=== PATIENT | female | born 1990 | race Caucasian/White ===

== ENCOUNTER 2017-10-10 09:42 | Emergency (ER) | payer MEDICAID ==
[~2017-10-10] VITALS: Ht 154.9 cm; Wt 75.0 kg
[~2017-10-10 09:42] MED LIST: DOXY100T18 PO; IBUP-232 PO; OXYC1TAB63 PO; SENN1TAB PO
[2017-10-10] MEDS ORDERED: IOHEXOL 350 MG/ML 10 ML VIAL (for RAD DIAG) IVCONTRAST ONE (09:43)
[2017-10-10 09:45] VITALS: BP 133/82; PULSE 126; RESP 20; TEMP 100.8; O2SAT 99
[2017-10-10] MEDS ORDERED: BUPR8SUB SL (10:10)
[2017-10-10] MEDS ORDERED: DEXAMETHASONE SOD PHOS 20 MG/5 ML VIAL IV PUSH ONE (10:15)
--- NOTE | 2017-10-10 10:25 | PD ---
HPI . Sore throat Chief Complaint: ENT Complaint Time Seen by Provider: 09:57 Travel History International Travel<30 days: No Contact w/Intl Traveler<30days: No Traveled to known affect area: No History of Present Illness HPI Patient presents with a chief complaint of sore throat. Onset was yesterday. No fever. No other cold symptoms. No known exposures. She rates her pain 10/ 10. No modifying factors. PFSH Past Medical History Hx Anticoagulant Therapy: No Cardiovascular Problems: No Chemotherapy: No Cerebrovascular Accident: No Diabetes: No Diminished Hearing: No Psychiatric: Yes (ACT 09/14) Respiratory: No Tetanus Vaccination: Unknown Influenza Vaccination: No ?: Not : 1 Para: 1 Miscarriage: 0 : 0 Past Surgical History Appendectomy: Yes Section: Yes Hysterectomy: No Social History Alcohol Use: No Tobacco Use: Yes (05/12 ppd) Substance Use: Yes (h/o NARCOTICS denied today) Allergies-Medications (Allergen,Severity, Reaction): Coded Allergies: Sulfa (Sulfonamide Antibiotics) (Unverified Allergy, Mild, HIVES, 10/10/17) penicillin G (Unverified Allergy, Mild, HIVES, 10/10/17) *MDRO Multi-Drug Resistant Organism (Verified Adverse Reaction, Unknown, ) MRSA arm wound 12/2014. MRSA PCR Screen #1 NEGATIVE - 04/25/16 Reported Meds & Prescriptions Reported Meds & Active Scripts Active Reported Buprenorphine (Buprenorphine HCl) 8 Mg Subl 8 Mg SL BID Review of Systems Except as stated in HPI: all other systems reviewed are Neg General / Constitutional: No: Fever, Chills HENT: Positive: Sore Throat, No: Rhinorrhea, Congestion Respiratory: No: Cough Hematologic/Lymphatic: Positive: Lymph Node Enlargement Physical Exam Narrative GENERAL: Awake and alert. SKIN: warm/dry. Normal color and turgor. HEAD: Normocephalic. Atraumatic. EYES: Pupils equal and round. No scleral icterus. No injection or drainage. ENT: Edema and erythema of the oropharynx with exudates in the tonsillar crypts. NECK: Trachea midline. Full range of motion without pain. Significant cervical lymphadenopathy. CARDIOVASCULAR: Regular rate and rhythm. RESPIRATORY: No accessory muscle use. MUSCULOSKELETAL: No obvious deformities. Normal muscle tone. NEUROLOGICAL: Awake and alert. No obvious cranial nerve deficits. Motor grossly within normal limits. Normal speech. PSYCHIATRIC: Appropriate mood and affect; insight and judgment normal. Data Data Last Documented VS Vital Signs Date Time Temp Pulse Resp B/P (MAP) Pulse Ox O2 Delivery O2 Flow Rate FiO2 10/10/17 09:45 100.8 126 20 133/82 (99) 99 Orders Orders Group A Rapid Strep Screen (10/10/17 10:04) Monoscreen (10/10/17 10:04) Complete Blood Count With Diff (10/10/17 10:04) Basic Metabolic Panel (Bmp) (10/10/17 10:04) ^ Saline Lock (10/10/17 10:04) Dexamethasone Inj (Decadron Inj) (10/10/17 10:15) Ct Soft Tiss Neck W Iv Cont (10/10/17 10:04) Cefazolin Inj (Ancef Inj) (10/10/17 12:00) Iohexol 350 Inj (Omnipaque 350 Inj) (10/10/17 09:43) Labs Laboratory Tests Test 10/10/17 10:20 White Blood Count 15.2 TH/MM3 Red Blood Count 4.51 MIL/MM3 Hemoglobin 13.6 GM/DL Hematocrit 40.3 % Mean Corpuscular Volume 89.5 FL Mean Corpuscular Hemoglobin 30.3 PG Mean Corpuscular Hemoglobin Concent 33.8 % Red Cell Distribution Width 12.4 % Platelet Count 163 TH/MM3 Mean Platelet Volume 9.8 FL Neutrophils (%) (Auto) 84.0 % Lymphocytes (%) (Auto) 6.3 % Monocytes (%) (Auto) 8.8 % Eosinophils (%) (Auto) 0.5 % Basophils (%) (Auto) 0.4 % Neutrophils # (Auto) 12.7 TH/MM3 Lymphocytes # (Auto) 1.0 TH/MM3 Monocytes # (Auto) 1.3 TH/MM3 Eosinophils # (Auto) 0.1 TH/MM3 Basophils # (Auto) 0.1 TH/MM3 CBC Comment DIFF FINAL Differential Comment Blood Urea Nitrogen 10 MG/DL Creatinine 0.80 MG/DL Random Glucose 118 MG/DL Calcium Level 8.7 MG/DL Sodium Level 138 MEQ/L Potassium Level 4.5 MEQ/L Chloride Level 100 MEQ/L Carbon Dioxide Level 28.0 MEQ/L Anion Gap 10 MEQ/L Estimat Glomerular Filtration Rate 85 ML/MIN Monoscreen NEG MDM Medical Decision Making Medical Screen Exam Complete: Yes Emergency Medical Condition: Yes Differential Diagnosis Differential diagnosis of sore throat includes but is not limited to viral illness, strep throat, mononucleosis, retropharyngeal abscess, peritonsillar abscess Narrative Course Patient presents with a chief complaint of a sore throat. She has edema of the oropharynx as well as significant cervical lymphadenopathy. Rapid strep and Monospot are pending. I have also ordered a CT of the soft tissues of her neck for further evaluation of lymphadenopathy. In the meantime, she will be treated with Decadron. This patient is on chronic pain management. CBC & BMP Diagram 10/10/17 10:20 Calcium Level 8.7 strep +. Curry -. Last Impressions Neck CT 10/10/17 1004 Signed Impressions: CONCLUSION: 1. Marked diffuse swelling of the adenoids and uvula, presumably infectious. N o drainable abscess demonstrated. 2. Bilateral cervical lymphadenopathy, presumably reactive. Given Ancef here. She will be discharged on Keflex. Diagnosis Primary Impression: Strep throat Patient Instructions: General Instructions, Strep Throat (ED) Med/Other Pt SpecificInfo: Prescription(s) given Scripts Cephalexin (Keflex) 500 Mg Capsule 500 MG PO TID for Infection for 7 Days, CAP 0 Refills Prov: Patricia Lyons MD 10/10/17 Disposition: 01 DISCHARGE HOME Condition: Stable Patricia Lyons MD Oct 10, 2017 10:25
[2017-10-10 10:56] LABS: AUTOMATED NEUTROPHIL # 12.7 TH/MM3 (1.8-7.7); BASOPHIL # 0.1 TH/MM3 (0-0.2); BASOPHIL % 0.4 % (0.0-2.0); EOSINOPHIL # 0.1 TH/MM3 (0-0.4); EOSINOPHIL % 0.5 % (0.0-4.0); HEMATOCRIT 40.3 % (35.0-46.0); HEMOGLOBIN 13.6 GM/DL (11.6-15.3); LYMPH % 6.3 % (9.0-44.0); MEAN CELL VOLUME 89.5 FL (80.0-100.0); MEAN CORPUSCULAR HEMOGLOBIN 30.3 PG (27.0-34.0); MEAN CORPUSCULAR HGB CONC 33.8 % (32.0-36.0); MEAN PLATELET VOLUME 9.8 FL (7.0-11.0); MONO % 8.8 % (0.0-8.0); MONOCYTE # 1.3 TH/MM3 (0-0.9); PLATELET COUNT 163 TH/MM3 (150-450); RED BLOOD COUNT 4.51 MIL/MM3 (4.00-5.30); RED CELL DISTRIBUTION WIDTH 12.4 % (11.6-17.2); WHITE BLOOD COUNT 15.2 TH/MM3 (4.0-11.0)
[2017-10-10 11:30] LABS: MONOSCREEN NEG (NEG)
[2017-10-10 11:39] LABS: CALCIUM 8.7 MG/DL (8.5-10.1); CREATININE 0.8 MG/DL (0.50-1.00)
--- NOTE | 2017-10-10 12:24 | RADRPT ---
EXAM DATE: 10/10/2017 12:17 PM EDT AGE/SEX: 27 years / Female INDICATIONS: Bilateral neck swelling, sore throat, swelling in mouth. CLINICAL DATA: This is the patient's initial encounter. Patient reports that signs and symptoms have been present for 2 days and indicates a pain score of 6/10. MEDICAL/SURGICAL HISTORY: . Drug abuse. Appendectomy. RADIATION DOSE: 14.20 CTDI (mGy) COMPARISON: No prior [facility] exams available for comparison. TECHNIQUE: Helical acquisition was performed using a multirow detector CT scanner during the adminis tration of 70 ml Omnipaque 350 (iohexol) nonionic water-soluble contrast as a single exam dose. Usi ng automated exposure control and adjustment of the mA and/or kV according to patient size, radiation dose was kept as low as reasonably achievable to obtain optimal diagnostic quality images. FINDINGS: Bilateral adenoids and the uvula are all extremely swollen and with associated narrowing of the poste rior nasopharynx. The rest of the airway is widely patent.. Tonsils are mildly swollen. These structu res have heterogeneous attenuation/enhancement but I don't see a well-defined/organized/drainable flu id collection. There are bilateral jugulodigastric lymph nodes that measure up to 16 mm in greatest short axis dimen luis. The thyroid is normal. Visualized lung apices are clear. No acute bony abnormality demonstrated. CONCLUSION: 1. Marked diffuse swelling of the adenoids and uvula, presumably infectious. No drainable abscess de monstrated. 2. Bilateral cervical lymphadenopathy, presumably reactive. Electronically signed by: Az Rodriguez MD 10/10/2017 12:22 PM EDT
[2017-10-10] MEDS ORDERED: CEPH-460 PO (12:31)
== END 2017-10-10 13:06 | disposition home or self-care (01) ==
LOC: NEPD 09:42
DX: J02.0 Streptococcal pharyngitis (principal); F17.200 Nicotine dependence, unspecified, uncomplicated
CPT/HCPCS: 70491; 80048; 85025; 86308; 87880; 96374; 96375; 99284; J0690; J1100; Q9967